=== PATIENT | female | born 1955 | race Caucasian/White ===

== ENCOUNTER 2020-01-26 11:29 | Emergency (ER) | payer BC ==
[2020-01-26] MEDS: Lidocaine 1% 20 ML MDV INJECT ONE (12:30)
[2020-01-26] MEDS: Lidocaine 1% 20 ML MDV ONE (12:30)
--- NOTE | 2020-01-26 12:30 | EDM.PDOC ---
ED HPI GENERAL MEDICAL PROBLEM - General Stated Complaint: FISH HOOK IN RIGHT HAND Time Seen by Provider: 01/26/20 11:43 Source of Information: Reports: Patient History Limitations: Reports: No Limitations - History of Present Illness INITIAL COMMENTS - FREE TEXT/NARRATIVE: Patient presents with 2 prongs of a 3-prong fish hook in her right hand that occurred about 2 hours ago. She had just removed it from a [place]. She denies numbness, tingling, diabetes or any immunocompromise. Right Finger-Little Pain Score (Numeric/FACES): 4 - Related Data Allergies Allergy/AdvReac Type Severity Reaction Status Date / Time Sulfa (Sulfonamide Allergy Redness Verified 01/26/20 12:06 Antibiotics) Home Meds: Home Meds Levothyroxine 75 mcg PO DAILY 01/26/20 [History] atorvaSTATin [Lipitor] 10 mg PO DAILY 01/26/20 [History] Social & Family History - Family History Family Medical History: Noncontributory Review of Systems - Review of Systems Review Of Systems: See Below Constitutional: Denies: Chills, Diaphoresis, Fever, Weakness Eyes: Denies: Vision Change Ears: Denies: Dizziness Nose: Denies: Epistaxis Mouth/Throat: Denies: Lip Swelling, Throat Swelling, Hoarse Voice, Muffled Voice Respiratory: Denies: Shortness of Breath, Cough Cardiovascular: Denies: Chest Pain, Syncope GI/Abdominal: Denies: Abdominal Pain Musculoskeletal: Reports: Hand Pain. Denies: Arm Pain, Back Pain Skin: Denies: Cyanosis, Jaundice, Mottled, Pallor, Diaphoresis Neurological: Denies: Confusion, Dizziness, Seizure, Syncope, Trouble Speaking, Difficulty Walking Psychiatric: Denies: Confusion ED EXAM, GENERAL - Physical Exam Exam: See Below Exam Limited By: No Limitations General Appearance: Alert, WD/WN, No Apparent Distress Eye Exam: Bilateral Eye: EOMI, Normal Inspection, PERRL Ears: Normal External Exam, Hearing Grossly Normal Nose: Normal Inspection, No Blood Throat/Mouth: Normal Inspection, Normal Lips, Normal Voice, No Airway Compromise Head: Atraumatic, Normocephalic Neck: Normal Inspection, Full Range of Motion Respiratory/Chest: No Respiratory Distress, Lungs Clear, Normal Breath Sounds, No Accessory Muscle Use Cardiovascular: Regular Rate, Rhythm, No Murmur Back Exam: Normal Inspection, Full Range of Motion Extremities: Normal Range of Motion, Other (Two curved hooks lodged in ulnar l ateral palm; no tendon or nerve involvement; distal CMS intact) Neurological: Alert, Oriented, Normal Cognition, No Motor/Sensory Deficits Psychiatric: Normal Affect, Normal Mood Skin Exam: Warm, Dry, Normal Color, No Rash ED TRAUMA EXTREMITY PROCEDURES - Foreign Body Removal Indication:: 2 fish hooks embedded in right hand Consent Obtained: Patient Performing Doctor:: Cheng Corral Anesthesia Type: Local Findings:: 2 fishhooks were cut apart and advanced through the skin after hibiclens soak for 15 minutes and lidocaine anesthesia. Patient tolerated the procedure well. Tetanus is updated today. Complications:: No Course - Vital Signs Last Recorded V/S: Last Vital Signs Temp 97.2 F 01/26/20 12:02 Pulse 85 01/26/20 12:02 Resp 16 01/26/20 12:02 BP 163/83 H 01/26/20 12:02 Pulse Ox 96 01/26/20 12:02 - Orders/Labs/Meds Meds: Medications Discontinued Medications Generic Name Dose Route Start Last Admin Trade Name Sylvain PRN Reason Stop Dose Admin Lidocaine HCl Confirm 01/26/20 12:13 Xylocaine 1% Administered 01/26/20 12:14 Dose 20 ml .ROUTE .STK-MED ONE - Re-Assessments/Exams Free Text/Narrative Re-Assessment/Exam: 01/26/20 12:38 Discussed findings and treatment plan with patient. She tolerated the procedure well and the fish hooks were removed without difficulty. Patient given first dose of antibiotic in ER and sent home with supply to cover the weekend and Rx to start on Tuesday. Discharged to home in stable condition. Departure - Departure Time of Disposition: 12:35 Disposition: Home, Self-Care 01 Condition: Good Clinical Impression: Fish hook injury of right hand Qualifiers: Encounter type: initial encounter Qualified Code(s): S69.91XA - Unspecified injury of right wrist, hand and finger(s), initial encounter - Discharge Information Referrals: Maranda Galarza MD [Primary Care Provider] - Additional Instructions: Keep wound clean and dry. Let drain and may shower or soak in Epsom salt solution if you want. Take antibiotic as directed. Follow up with your PCP if any worsening, sign of infection or other problems. Sepsis Event Note (ED) - Evaluation Sepsis Screening Result: No Definite Risk - Focused Exam Vital Signs: Vital Signs Temp Pulse Resp BP Pulse Ox 01/26/20 12:02 97.2 F 85 16 163/83 H 96
[2020-01-26] MEDS: Bacitracin/Neomycin/Polymyxin B Oint 0.9 GM U/D Packet TOP ONE (12:40)
[2020-01-26] MEDS: Cephalexin 250 MG Cap PO ONE (12:43)
[2020-01-26] MEDS: Diphtheria,Pertussis(Acell),Tetanus Vaccine 0.5 ML SDV IM ONE (12:44)
== END 2020-01-26 13:00 | disposition home or self-care (01) ==
LOC: KA.ED 11:29
DX: S60.551A Superficial foreign body of right hand, initial encounter (principal); Z23 Encounter for immunization; Z88.2 Allergy status to sulfonamides; Z79.899 Other long term (current) drug therapy; W45.8XXA Other foreign body or object entering through skin, initial encounter
CPT/HCPCS: 90471; 90715; 99282; 99283; J2001